=== PATIENT | male | born 1950 | race Caucasian/White ===

== ENCOUNTER → 2018-06-26 18:21 | Outpatient (CLI) | payer OTHER ==
[2013-02-03 08:43] VITALS: BMI 30.9
[~2018-06-26 18:21] MED LIST: ASPIRIN 81 MG E81 MG PO; CARDIZEM CD180 MG PO; CRESTOR40 MG PO; LOPRESSOR50 MG PO; PLAVIX75 MG PO; ZESTORETIC 20/21 TAB PO
== END | disposition home or self-care (01) ==
LOC: D.LABREF 18:21
PROVIDERS: ATTEND Urology
DX: D72.829 Elevated white blood cell count, unspecified (principal); R31.9 Hematuria, unspecified

== ENCOUNTER → 2018-07-01 13:31 | Outpatient (CLI) | payer MEDICARE | END | disposition home or self-care (01) | LOC: D.CT 13:31 | DX: R31.9 Hematuria, unspecified (principal) ==

== ENCOUNTER 2018-07-23 06:10 | Day surgery (SDC) | payer MEDICARE ==
[2018-07-22 13:07] LABS: HEMATOCRIT 41.4 % (42.0-54.0); HEMOGLOBIN 14.3 g/dL (13.5-17.5); MCHC 34.5 g/dL (31.0-37.0); MCV 92.6 fL (80.0-100.0); RBC 4.47 10x6/uL (4.20-6.10); RDW 13.6 % (11.5-14.5); WBC 9.5 10x3/uL (4.8-10.8)
[2018-07-22 13:14] LABS: APTT 29.8 SECONDS (22.8-39.4); INR 1.29 (0.85-1.17); PROTIME 15.5 SECONDS (11.6-15.0)
[~2018-07-23 06:10] MED LIST changes: +COUMADIN2 MG PO; +FLOMAX0.4 MG PO; +LIPITOR40 MG PO; +SYNTHROID100 MCG PO
[2018-07-23 07:05] VITALS: BP 119/67; BMI 31.6
--- NOTE | 2018-07-23 10:34 | OP ---
PATIENT NAME: JEISON LARIOS MEDICAL RECORD: [id number] :48 LOCATION:[facility] ADMISSION DATE: SURGEON: PETER CABRERA MD DATE OF OPERATION: 07/23/2018 SURGEON: Peter Cabrera MD ANESTHESIA: TIVA by Ronna Rosen CRNA DIAGNOSIS: Benign prostatic hyperplasia with bladder outlet obstruction. PROCEDURE: UroLift times 4 in box configuration. FINDINGS: Obstructive bladder neck. BLOOD LOSS: None. CLINICAL HISTORY: This is a 68-year-old male who has obstructive voiding symptoms as well as some episodes of gross hematuria. He has been on tamsulosin for many years. He has lightheadedness, decreased ejaculatory volume, and problems with short-term memory from the tamsulosin. He has not had a PSA drawn in some time. I obtained a PSA today and it is 0.65. His IPSS score is 22 and his quality of life score is 4. On CAT, he has a 40-gram prostate. HE IS ALLERGIC TO PENICILLIN. He was given Levaquin IV on-call to the OR. DESCRIPTION OF PROCEDURE: The patient was given IV sedation. He was placed in dorsal lithotomy position and prepped and draped. We introduced the UroLift scope. To introduce the UroLift scope, we had to dilate the urethral meatus to 24-Peruvian with male sounds. 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 He is circumcised. The urethra shows no signs of obstruction. The prostate shows no obstruction by the lateral lobes. The main site of obstruction is the bladder neck. Going into the bladder, no bladder tumors were seen. Four UroLift implants were placed around the bladder neck about 1.5 cm distal to the bladder neck. The 2 anterior ones were placed at the anterolateral sulcus of the prostate. The 2 more posterior ones were placed more at about the midline level of the prostatic urethra, all around the bladder neck in a box configuration. The bladder neck was then widely opened after this procedure was done. The bladder was partly emptied. The patient will be seen back in follow up in one month's time. TRANSINT:[id number] Voice Confirmation ID: [id number] DOCUMENT ID: [id number] PETER CABRERA MD at 1034 CC: [id number] DICTATION DATE: 07/23/1854 LABORATORY MONITOR: 07/23/18 1023 [facility] [address] [place], [facility]
--- NOTE | 2018-07-23 15:15 | NUR ---
1045 VOIDED A SMALL AMOUNT. Kirill DAVEY R.N.
--- NOTE | 2018-07-23 15:23 | NUR ---
1208 DRESSED AWAEK & ALERT. GIVEN DISCHARGE INFORMATION INCLUDING MED REC, RTC APPT., [facility] D/C INSTRUCTIONS, UROLIFT D/C INSTRUCTIONS, UROLIFT PAMPHLET, & UROLIFT IMPLANT CARD. PT INFORMED TO STOP FLOMAX. PT ASKED WHEN HE CAN RESUME COUMADIN. ADVISED TO RESUME COUMADIN PER DR. CABRERA'S PREVIOUS INSTRUCTIONS TO RESUME WHEN BLLEDING HAS STOPPED. INFORMED IF BLEEDING LAST LONGER THAN [address] CABRERA'S OFFICE. TO PRIVATE CAR PER WHEELCHAIR. HOME WITH WITH , MRS. LARIOS. KuldeepMichael DAVEY R.N.
== END 2018-07-23 12:08 | disposition home or self-care (01) ==
LOC: D.OPS 06:10 → D.PAN 08:15 → D.OPS 08:15 → D.PAN 08:40 → D.OPS 08:40 → D.PAN 09:00 → D.OPS 12:08
PROVIDERS: Anesthesiology; ATTEND Urology
DX: N40.1 Benign prostatic hyperplasia with lower urinary tract symptoms (principal); N13.8 Other obstructive and reflux uropathy; N32.0 Bladder-neck obstruction; R31.0 Gross hematuria; Z88.0 Allergy status to penicillin; Z01.812 Encounter for preprocedural laboratory examination

== ENCOUNTER → 2018-08-21 13:11 | Outpatient (CLI) | payer MEDICARE | END | disposition home or self-care (01) | LOC: D.LABREF 13:11 | DX: D72.829 Elevated white blood cell count, unspecified (principal) ==

== ENCOUNTER → 2018-08-28 16:23 | Outpatient (CLI) | payer MEDICARE | END | disposition home or self-care (01) | LOC: D.LABREF 16:23 | PROVIDERS: ATTEND Urology | DX: R31.9 Hematuria, unspecified (principal); D72.829 Elevated white blood cell count, unspecified ==

== ENCOUNTER → 2018-09-18 19:05 | Outpatient (CLI) | payer MEDICARE | END | disposition home or self-care (01) | LOC: D.LABREF 19:05 | PROVIDERS: ATTEND Urology | DX: N39.0 Urinary tract infection, site not specified (principal) ==

== ENCOUNTER → 2018-10-07 16:53 | Outpatient (CLI) | payer MEDICARE | END | disposition home or self-care (01) | LOC: D.LABREF 16:53 | PROVIDERS: ATTEND Urology | DX: N39.0 Urinary tract infection, site not specified (principal) ==

== ENCOUNTER → 2019-02-13 20:13 | Outpatient (CLI) | payer MEDICARE | END | disposition home or self-care (01) | LOC: D.LABREF 20:13 | PROVIDERS: ATTEND Urology | DX: R82.90 Unspecified abnormal findings in urine (principal); R31.9 Hematuria, unspecified ==

== ENCOUNTER → 2019-02-27 20:25 | Outpatient (CLI) | payer SELFPAY | END | disposition home or self-care (01) | LOC: D.LABREF 20:25 | PROVIDERS: ATTEND Urology | DX: R82.90 Unspecified abnormal findings in urine (principal) ==